=== PATIENT | female | born 1965 | race Caucasian/White ===

== ENCOUNTER 2018-10-05 13:17 | Emergency (ER) | payer MEDICAID, OTHER ==
--- NOTE | 2018-10-05 14:20 | EDPHY ---
H & P Time Seen by Provider: 10/05/18 14:06 HPI/ROS: CHIEF COMPLAINT: Left medial knee pain HISTORY OF PRESENT ILLNESS: 52-year-old female complaining of several months supple atraumatic left medial knee pain exacerbated at a new job where she has to stand and bend regularly. No trauma. No discoloration. Reproducible pain particularly when she is pushing on her clutch of her vehicle. PRIMARY CARE PROVIDER: REVIEW OF SYSTEMS: A ten point review of systems was performed and is negative with the exception of the items mentioned in the HPI PHYSICAL EXAM (Prior to examination, patient consented to physical exam, hands were washed and my usual and customary physical exam procedures followed) 1) GENERAL: Well-developed, well-nourished, alert and oriented. Appears to be in no acute distress. 2) HEAD: Normocephalic 3) HEENT: Pupils equal, round, reactive to light bilaterally. 4) LUNGS: Breathing comfortably. 5) MUSCULOSKELETAL: Exam of the left knee shows normal coloration. Focal tenderness to palpation medial aspect of knee with no fluctuance. No overlying skin changes. . Compartments are soft. 6) SKIN: Intact 7) VASCULAR: DP,PT pulses and cap refill present and brisk distally DIFFERENTIAL DIAGNOSIS: in no particular order including but not limited to fracture, sprain, compartment syndrome, septic arthritis, DVT Procedure: Crutches indications for crutch use discussed with patient. Patient fitted for crutches by ER staff. Observed ambulating with crutches. I think the patient has the capacity to safely use crutches. Usual and customary crutch walking precautions provided Procedure: Splint A knee immobilizer splint was applied by ER windshield technician. After application of the splint I returned and re-examined the patient. The splint was adequately immobilizing the joint and distal to the splint the patient's circulation and sensation were intact. Patient shows no signs of compartment syndrome. Was given orthopedic precautions. MEDICAL DECISION MAKING Serial evaluations performed on patient. I discussed the limitations of x-ray in diagnosis of knee pain and injury. At this time I do not think that emergent MRI is currently indicated. However, I have recommended follow-up with Orthopedic surgery and provided this referral information. Informed the patient that outpatient MRI may be indicated. Doubt septic arthritis. Doubt compartment syndrome. Doubt DVT. I saw this patient independently based on established practice protocols. Care of patient under supervision of primary Supervising physician Dr Abbasi. Smoking Status: Never smoked Constitutional: Initial Vital Signs Heart Rate 84 10/05/18 13:23 Respiratory Rate 16 10/05/18 13:23 Blood Pressure 107/75 10/05/18 13:23 O2 Sat (%) 96 10/05/18 13:23 O2 Delivery Mode Room Air O2 (L/minute) 36.6 Allergies/Adverse Reactions: No Known Allergies Allergy (Verified 10/05/18 13:22) Home Medications: Medication Instructions Recorded Hydrocodone/APAP 5/325 [[place] 1 tab PO Q6 PRN #7 tab 10/05/18 5/325 (RX)] MDM/Departure - MDM Imaging Results: Imaging Impressions Knee X-Ray 10/05/18 14:18 Impression: Probable joint effusion with no acute osseous findings. Images reviewed myself - Depart Disposition: Home, Routine, Self-Care Clinical Impression: Left medial knee pain Condition: Fair Instructions: Hydrocodone/Acetaminophen (By mouth), Knee Pain (ED) Additional Instructions: Return to the ER immediately if you experience discoloration, have worsening pain, numbness, tingling, or any other symptoms that concern you. If you received x-rays in the emergency department today, be advised, that ligamentous , tendon, muscular, and other non-bony injury cannot be fully ruled out. Try to keep your affected extremity elevated above the level of your chest, and keep cold packs on the affected area, for the next 48 hours. Prescriptions: Hydrocodone/APAP 5/325 [[place] 5/325 (RX)] 1 tab PO Q6 PRN #7 tab PRN Reason: Pain, Severe Referrals: Dennis Childress MD [Medical Doctor] - As per Instructions
[2018-10-05 15:05] VITALS: BP 116/77
== END 2018-10-05 15:05 | disposition home or self-care (01) ==
DX: M25.562 Pain in left knee (principal)
CPT/HCPCS: L1830